=== PATIENT | female | born 2005 | race Caucasian/White ===

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

== ENCOUNTER 2024-03-25 05:14 | Emergency (ER) | payer OTHER ==
[~2024-03-25] VITALS: Ht 165.1 cm; Wt 136.1 kg
[2024-03-25 06:57] VITALS: BP 124/85
== END 2024-03-25 06:57 | disposition home or self-care (01) ==
LOC: ER 05:14
DX: F45.8 Other somatoform disorders (principal); Z88.0 Allergy status to penicillin; Z88.2 Allergy status to sulfonamides; Z88.1 Allergy status to other antibiotic agents

== ENCOUNTER 2024-11-25 02:54 | Emergency (ER) | payer OTHER ==
[~2024-11-25] VITALS: Ht 167.6 cm; Wt 127.0 kg
[~2024-11-25 02:54] MED LIST changes: +HYDHCL25 PO
[2024-11-25 03:16] VITALS: BP 169/103
== END 2024-11-25 04:43 | disposition left against medical advice (07) ==
LOC: ER 02:54
DX: Z53.21 Procedure and treatment not carried out due to patient leaving prior to being seen by health care provider (principal)
CPT/HCPCS: 87430

== ENCOUNTER 2025-04-04 01:33 | Emergency (ER) | payer OTHER ==
[~2025-04-04] VITALS: Ht 170.2 cm; Wt 147.4 kg
[2025-04-04 01:47] VITALS: BP 136/93
== END 2025-04-04 01:57 | disposition left against medical advice (07) ==
LOC: ER 01:33
DX: R10.9 Unspecified abdominal pain (principal); R11.2 Nausea with vomiting, unspecified; Z53.21 Procedure and treatment not carried out due to patient leaving prior to being seen by health care provider
CPT/HCPCS: 99281

== ENCOUNTER 2025-05-17 19:27 | Emergency (ER) | payer OTHER ==
[~2025-05-17] VITALS: Ht 165.1 cm; Wt 136.1 kg
[2025-05-17 19:29] VITALS: BP 141/92
[2025-05-17 19:59] LABS: CORONAVIRUS COVID-19 AG Negative (NEGATIVE); INFLUENZA A AG Negative (NEGATIVE); INFLUENZA B AG Negative (NEGATIVE)
[2025-05-17] MEDS ORDERED: Benzonatate 100 MG Cap PO ONE (21:10)
[2025-05-18] MEDS ORDERED: Tessalon200 MG PO (02:10)
== END 2025-05-17 21:38 | disposition home or self-care (01) ==
LOC: ER 19:27
PROVIDERS: Student in an Organized Health Care Education/Training Program
DX: J40 Bronchitis, not specified as acute or chronic (principal); Z79.899 Other long term (current) drug therapy; Z88.0 Allergy status to penicillin; Z88.2 Allergy status to sulfonamides; Z88.1 Allergy status to other antibiotic agents
CPT/HCPCS: 71046; 87428-QW; 99283-25; A9270